=== PATIENT | female | born 1940 | race American Indian/Alaskan Native ===

== ENCOUNTER 2017-02-07 18:07 | Emergency (ER) | payer MEDICARE ==
--- NOTE | 2017-02-07 19:52 | Emergency Department Report ---
HPI - General Chief Complaint: Urogenital-Female Time Seen by Provider: 02/07/17 18:19 - HPI HPI: This is a 76-year-old Afro[place] female who presents to the emergency department from home with her daughter at bedside with complaint of the Guerrier catheter coming out and some blood and/or discomfort to the vaginal area. 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 She was at a rehabilitation facility in [place] but came home today. The daughter has started to take care of her and was trying to clean her sacral ulcers when she noticed some blood in the vaginal region. The patient complained of some slight discomfort in that area and the daughter was concerned that the Guerrier catheter may have come out. She has a Guerrier catheter in place secondary to her immobility. Patient has a history of diabetes, hypertension, schizophrenia, high cholesterol and hypothyroidism. ED Past Medical Hx - Past Medical History Previous Medical History?: Yes Hx Hypertension: Yes Hx Diabetes: Yes Hx Seizures: Yes (not on meds,new ONSET yesterday per daughter) Hx Psychiatric Treatment: Yes Additional medical history: HIGH CHOLESTEROL, hyperthyroid - Surgical History Past Surgical History?: Yes Additional Surgical History: PARTIAL HYSTERECTOMY - Social History Smoking Status: Never Smoker Substance Use Type: None - Medications Home Medications: Home Medications Medication Instructions Recorded Confirmed Last Taken Type Atorvastatin (Nf) [Lipitor (Nf)] 10 mg PO QHS 07/11/14 11/30/15 07/11/14 History NIFEdipine [Nifedipine ER] 60 mg PO DAILY 07/11/14 11/30/15 07/11/14 History amLODIPine [Norvasc] 10 mg PO DAILY 07/11/14 11/30/15 07/11/14 History metFORMIN [Glucophage] 500 mg PO DAILY 07/11/14 11/30/15 07/11/14 History Levothyroxine [Synthroid] 100 mcg PO QAM #30 tablet 08/19/14 11/30/15 Unknown Rx amLODIPine [Norvasc] 10 mg PO DAILY #30 tab 08/19/14 11/30/15 Unknown Rx Ciprofloxacin HCl [Ciprofloxacin 500 mg PO BID #14 tablet 11/30/15 Unknown Rx TAB] HYDROcodone/APAP 5-325 [[place] 1 each PO Q6HR PRN #20 tablet 11/30/15 Unknown Rx 5/325] risperiDONE [RisperiDONE] 1 mg PO QDAY 11/30/15 11/30/15 Unknown History Nitrofurantoin [place]/M-Cryst 100 mg PO Q12HR #20 capsule 10/08/16 Unknown Rx [Macrobid CAP] Levofloxacin [Levaquin] 750 mg PO QDAY #7 tablet 02/07/17 Unknown Rx ED Review of Systems ROS: Stated complaint: CATHETER Other details as noted in HPI Comment: All other systems reviewed and negative Constitutional: denies: chills, fever Eyes: denies: eye pain, eye discharge, vision change ENT: denies: ear pain, throat pain Respiratory: denies: cough, shortness of breath, wheezing Cardiovascular: denies: chest pain, palpitations Gastrointestinal: denies: abdominal pain, nausea, diarrhea Genitourinary: denies: dysuria, discharge Musculoskeletal: denies: back pain, joint swelling, arthralgia Skin: lesions (sacral decubitus ulcers). denies: pruritus Neurological: denies: headache, weakness, paresthesias Physical Exam - Physical Exam Vital Signs: Vital Signs 02/07/17 02/07/17 18:51 19:46 Temperature 98.6 F 99.2 F Pulse Rate 85 93 H Respiratory 16 18 Rate Blood Pressure 126/79 113/72 [Left] O2 Sat by Pulse 98 98 Oximetry Physical Exam: GENERAL: Patient is elderly and debilitated appearing. HEENT: Normocephalic. Atraumatic. Extraocular motions are intact. Patient has moist mucous membranes. Pupils equal reactive to light bilaterally. NECK: Supple. Trachea is midline. CHEST/LUNGS: Clear to auscultation. There is no respiratory distress noted. HEART/CARDIOVASCULAR: Regular. There is no tachycardia. There is no gallop rub or murmur. ABDOMEN: Abdomen is soft, nontender. Patient has normal bowel sounds. There is no abdominal distention. SKIN: Skin is warm and dry. Patient has 2 separate stage IV decubitus ulcers to the medial buttocks and sacral region. There is no surrounding erythema and no current drainage seen. NEURO: The patient is awake and cooperative. The patient has normal speech. MUSCULOSKELETAL: There is no tenderness or deformity. Cap refill less than 2 seconds. ED Course Vital Signs 02/07/17 02/07/17 18:51 19:46 Temperature 98.6 F 99.2 F Pulse Rate 85 93 H Respiratory 16 18 Rate Blood Pressure 126/79 113/72 [Left] O2 Sat by Pulse 98 98 Oximetry ED Medical Decision Making - Medical Decision Making This is a 76-year-old female presents to the emergency department with the concern that her Guerrier catheter has become dislodged. While the patient was in the emergency department, the daughter is asking for the chronic pressure ulcers to the buttocks and/or sacrum to be evaluated and she helps that she can learn how to better clean and/or treat them at home. The Guerrier catheter was replaced and it is draining urine. The urinalysis shows a urinary tract infection. There is some hematuria but there was some concern that the original Guerrier catheter was accidentally dislodged and this could be the source of the bleeding. However they've been encouraged to follow up with primary care regarding these concerns. Patient was given a dose of Levaquin through the feeding tube which was confirmed with pharmacy that it is able to be crushed. Patient's vital signs stable including being afebrile. The patient's daughter says that they are getting daily home healthcare. The decubitus/ buttock ulcers were cleaned and covered and the patient will be transported back to home. Critical Care Time: No Critical care attestation.: If time is entered above; I have spent that time in minutes in the direct care of this critically ill patient, excluding procedure time. ED Disposition Clinical Impression: Sacral ulcer Qualifiers: Non-pressure ulcer stage: unspecified non-pressure ulcer stage Qualified Code(s ): L98.499 - Non-pressure chronic ulcer of skin of other sites with unspecified severity UTI (urinary tract infection) Qualifiers: Urinary tract infection type: acute cystitis Hematuria presence: with hematuria Qualified Code(s): N30.01 - Acute cystitis with hematuria Dislodged Guerrier catheter Qualifiers: Encounter type: initial encounter Qualified Code(s): T83.021A - Displacement of indwelling urethral catheter, initial encounter Disposition: DISCHARGED TO HOME OR SELFCARE Is pt being admited?: No Condition: Stable Instructions: Urinary Tract Infection in Women (ED), Guerrier Catheter Placement and Care (ED), How to Prevent Pressure Ulcers (ED), Pressure Ulcer (ED) Additional Instructions: Please follow-up with the primary care doctor when possible. Return to the emergency department with any worsening of your symptoms or any acute distress. Prescriptions: Levofloxacin [Levaquin] 750 mg PO QDAY #7 tablet Referrals: PRIMARY CARE, [Primary Care Provider] - 3-5 Days Time of Disposition: 23:14
[2017-02-07 20:56] LABS: Bilirubin,Urine NEG (Negative); Blood,Urine MOD (Negative); Ketones,Urine NEG (Negative); Leukocyte Esterase,Urine LG (Negative); Mucus,Urine FEW /HPF; Nitrite,Urine NEG (Negative)
[2017-02-07] MEDS ORDERED: LEVAQUIN PO ONE (22:05)
[2017-02-08 06:19] VITALS: BP 124/77
== END 2017-02-08 07:12 | disposition home or self-care (01) ==
LOC: ED 18:07
DX: T83.021A Displacement of indwelling urethral catheter, initial encounter (principal); N30.01 Acute cystitis with hematuria; L98.499 Non-pressure chronic ulcer of skin of other sites with unspecified severity; I10 Essential (primary) hypertension; E11.9 Type 2 diabetes mellitus without complications; E78.00 Pure hypercholesterolemia, unspecified; E05.90 Thyrotoxicosis, unspecified without thyrotoxic crisis or storm; Y84.6 Urinary catheterization as the cause of abnormal reaction of the patient, or of later complication, without mention of misadventure at the time of the procedure
CPT/HCPCS: 81001; 99284

== ENCOUNTER 2017-02-15 08:04 | Outpatient (CLI) | payer MEDICARE ==
[~2017-02-15 08:04] MED LIST: XYLOCAINE TOPICAL 4% TP ONE
[2017-02-15] MEDS ORDERED: XYLOCAINE TOPICAL 4% TP ONE (10:26)
== END 2017-02-15 08:05 | disposition home or self-care (01) ==
LOC: WOUND 08:04
PROVIDERS: ATTEND Internal Medicine
DX: L89.154 Pressure ulcer of sacral region, stage 4 (principal); E11.622 Type 2 diabetes mellitus with other skin ulcer; L97.811 Non-pressure chronic ulcer of other part of right lower leg limited to breakdown of skin; D50.8 Other iron deficiency anemias; E43 Unspecified severe protein-calorie malnutrition; K21.0 Gastro-esophageal reflux disease with esophagitis; F02.80 Dementia in other diseases classified elsewhere, unspecified severity, without behavioral disturbance, psychotic disturbance, mood disturbance, and anxiety; F20.0 Paranoid schizophrenia; M62.3 Immobility syndrome (paraplegic); I11.0 Hypertensive heart disease with heart failure; I50.9 Heart failure, unspecified; Z87.891 Personal history of nicotine dependence
CPT/HCPCS: 99205; 99215; G0463